=== PATIENT | female | born 1995 | race Caucasian/White ===

== ENCOUNTER 2023-08-22 05:14 | Emergency (ER) | payer OTHER ==
[~2023-08-22] VITALS: Ht 152.4 cm; Wt 61.2 kg
[2023-08-22 05:18] VITALS: BP_SYST 126; PULSE 87; RESP 19; TEMP 97.7; O2SAT 100
[2023-08-22 06:08] VITALS: BP_SYST 126; PULSE 87; RESP 19; TEMP 97.7; O2SAT 100
[2023-08-23 08:06] LABS: HEPATITIS B CORE AB, TOTAL Negative (Negative); HEPATITIS B SURFACE AG Negative (Negative); HEPATITIS C VIRUS AB Non Reactive (Non Reactive)
== END 2023-08-22 06:07 | disposition home or self-care (01) ==
LOC: SED 05:14
DX: S61.032A Puncture wound without foreign body of left thumb without damage to nail, initial encounter (principal); W27.3XXA Contact with needle (sewing), initial encounter; Y93.89 Activity, other specified; Y92.89 Other specified places as the place of occurrence of the external cause; Y99.8 Other external cause status
CPT/HCPCS: 36415; 86704; 86706; 86803; 87340; 99283

== ENCOUNTER 2023-12-05 23:29 | Emergency (ER) | payer MEDICAID, OTHER ==
[~2023-12-05] VITALS: Ht 157.5 cm; Wt 61.2 kg
[2023-12-05 23:30] VITALS: BP_SYST 123; PULSE 98; RESP 12; TEMP 98.9; O2SAT 98
[2023-12-05] MEDS ORDERED: LIDOCAINE 1%, 20 ML MDV 20 ML ONE (23:56)
[2023-12-06] MEDS: LIDOCAINE MPF 1% 50 MG/5 ML AMP INJ ONE (00:18)
[2023-12-06] MEDS ORDERED: SULF1TAB48 PO (00:22)
[2023-12-06 00:25] VITALS: BP_SYST 123; PULSE 98; RESP 12; TEMP 98.9; O2SAT 98
== END 2023-12-06 00:25 | disposition home or self-care (01) ==
LOC: SED 23:29
DX: S80.261A Insect bite (nonvenomous), right knee, initial encounter (principal); L03.115 Cellulitis of right lower limb; L02.415 Cutaneous abscess of right lower limb; Z88.0 Allergy status to penicillin; W57.XXXA Bitten or stung by nonvenomous insect and other nonvenomous arthropods, initial encounter; Y93.89 Activity, other specified; Y92.89 Other specified places as the place of occurrence of the external cause; Y99.8 Other external cause status
CPT/HCPCS: 99284; J2001